=== PATIENT | female | born 1975 | race Caucasian/White ===

== ENCOUNTER → 2017-01-24 | Outpatient (CLI) | payer MEDICAID | LOC: LAB 14:43 | DX: L98.8 Other specified disorders of the skin and subcutaneous tissue (principal) ==

== ENCOUNTER → 2017-04-11 | Outpatient (CLI) | payer MEDICAID | LOC: LAB 12:41 | DX: Z00.00 Encounter for general adult medical examination without abnormal findings (principal) ==

== ENCOUNTER → 2018-04-27 | Outpatient (CLI) | payer BC, MEDICAID | LOC: RAD 11:00 | DX: M54.5 Low back pain (principal) ==

== ENCOUNTER → 2019-08-24 | Outpatient (CLI) | payer MEDICAID | LOC: RAD 15:16 | DX: R05 Cough (principal) ==

== ENCOUNTER → 2020-04-28 | Outpatient (CLI) | payer OTHER | LOC: RAD 12:01 | DX: M25.532 Pain in left wrist (principal) ==

== ENCOUNTER → 2021-09-10 | Day surgery (SDC) | payer OTHER | END | disposition home or self-care (01) | LOC: MSO 09-06 08:30 | DX: R11.2 Nausea with vomiting, unspecified (principal); K29.60 Other gastritis without bleeding; R63.4 Abnormal weight loss; F17.210 Nicotine dependence, cigarettes, uncomplicated; F98.8 Other specified behavioral and emotional disorders with onset usually occurring in childhood and adolescence; Z79.899 Other long term (current) drug therapy | CPT/HCPCS: 00731; J2704; J7120 ==